=== PATIENT | female | born 1965 | race African-American/Black ===

== ENCOUNTER 2021-10-29 19:17 | Emergency (ER) | payer MEDICARE, OTHER ==
[2021-10-29 19:38] VITALS: BMI 25.7
[2021-10-29] MEDS ORDERED: METOCLOPRAMIDE HCL INJECTION 10 MG/2 ML VIAL IVPB ONE (20:42)
[2021-10-29] MEDS ORDERED: SODIUM CHLORIDE 1,000 ML IV STA (20:45)
[2021-10-29] MEDS ORDERED: METOCLOPRAMIDE HCL INJECTION 10 MG/2 ML VIAL ONE (20:56)
[2021-10-29 21:40] LABS: BASO % 0.5 % (0-2.0); EOS % 0.1 % (0-4.5); HEMOGLOBIN 13.3 GM/dL (10.7-15.3); LYMPH % 21.7 % (8-40); MCH 27.5 pg (25.7-33.7); MCHC 31.6 g/dl (32.0-36.0); MEAN CELL VOLUME 87.1 fl (80-96); MEAN PLT VOLUME 9.2 fl (7.5-11.1); MONO % 8.7 % (3.8-10.2); PLATELET COUNT 215 10^3/uL (134-434); RBC 4.82 M/mm3 (3.60-5.2); RDW 13.7 % (11.6-15.6); WHITE BLOOD COUNT 13.4 K/mm3 (4.0-10.0)
[2021-10-29 22:06] LABS: CHLORIDE 105 mmol/L (98-107); SODIUM 138 mmol/L (136-145)
[2021-10-29 22:08] LABS: ALBUMIN 3.6 g/dl (3.4-5.0); BLOOD UREA NITROGEN 23.2 mg/dL (7-18); CALCIUM 10.2 mg/dL (8.5-10.1); CO2 27 mmol/L (21-32); GLUCOSE,RANDOM 134 mg/dL (74-106); LIPASE < 10 U/L (73-393)
[2021-10-29 22:11] LABS: CREATININE 0.9 mg/dL (0.55-1.3); SGOT/AST 72 U/L (15-37)
[2021-10-29 22:13] LABS: BILIRUBIN,TOTAL 0.5 mg/dL (0.2-1); TOT PROT 8.1 g/dl (6.4-8.2)
[2021-10-29 22:14] LABS: ALK PHOS 83 U/L (45-117)
[2021-10-29 22:46] LABS: ANION GAP 6 MMOL/L (8-16)
[2021-10-29 23:21] LABS: SGPT/ALT 28 U/L (13-61)
[2021-10-29 23:51] VITALS: BP 113/57; PULSE 70; RESP 16; TEMP 97.8
== END 2021-10-30 00:17 | disposition home or self-care (01) ==
LOC: JER 19:17
PROC: 3E033GC Introduction of Other Therapeutic Substance into Peripheral Vein, Percutaneous Approach (ICD-10-PCS; principal; 2021-10-29)
DX: R11.2 Nausea with vomiting, unspecified (principal)
CPT/HCPCS: 36415; 80053; 83690; 84484; 85025; 93005; 93010; 96361; 96374; 96375; 99284-25